=== PATIENT | female | born 2005 | race Caucasian/White ===

== ENCOUNTER 2025-03-02 11:02 | Observation (INO) | payer OTHER ==
[~2025-03-02] VITALS: Ht 167.6 cm; Wt 65.8 kg
[2025-03-02] MEDS ORDERED: MAGNESIUM/ALUMINUM/SIMETHICONE 30 ML UDC PO ONE (11:15)
[2025-03-02] MEDS ORDERED: BELLADONNA ALK/PHENOBARBITAL 5 ML UDC PO STA (11:15)
[2025-03-02] MEDS ORDERED: LIDOCAINE VISC 2% SOLN 15 ML UDC PO ONE (11:15)
[2025-03-02 11:34] LABS: BASOPHILS % 0.8 % (0.0-1.0); EOSINOPHILS % 2.6 % (0.0-6.0); LYMPHOCYTES % 37.6 % (18.0-39.1); MONOCYTES % 17.1 % (4.4-11.3); NEUTROPHILS % 41.5 % (38.7-80.0); RED CELL DISTRIBUTION WIDTH 12.3 % (11.7-14.4)
[2025-03-02] MEDS: DONNATAL/LIDOCAINE/MAALOX 30 ML SUSP PO ONE (11:34)
[2025-03-02 11:46] LABS: EST GLOMERULAR FILTRATION RATE 117.0 ML/MIN (>=60)
[2025-03-02 13:08] LABS: AMPHETAMINES SCREEN,URINE NEGATIVE (NEGATIVE); CANNABINOIDS SCREEN,URINE NEGATIVE (NEGATIVE); COCAINE SCREEN,URINE NEGATIVE (NEGATIVE); METHADONE SCREEN, URINE NEGATIVE (NEGATIVE); OPIATES SCREEN,URINE NEGATIVE (NEGATIVE)
[2025-03-02] MEDS ORDERED: SODIUM CHLORIDE 0.9% 100 ML ONE (13:11)
[2025-03-02] MEDS ORDERED: IOPAMIDOL 370 MG/ML 100 ML INFUS..BTL INJ ONE (13:11)
[2025-03-02] MEDS ORDERED: ONDANSETRON HCL INJ 2MG/ML 2ML 2 MG/ML VIAL IV PRN (15:00)
[2025-03-02 16:02] VITALS: PULSE 78; RESP 16; TEMP 98.4
[2025-03-02 16:25] VITALS: BP 104/63; O2SAT 99
[2025-03-02 16:38] VITALS: PULSE 90; RESP 20; O2SAT 99
[2025-03-02] MEDS ORDERED: birth control (16:38)
[2025-03-02] MEDS: SODIUM CHLORIDE 0.9% 1000ML 1,000 ML IV SCH (16:56)
[2025-03-02 19:13] VITALS: PULSE 87; RESP 16; O2SAT 99
[2025-03-02 20:00] VITALS: BP 100/62; PULSE 77; RESP 18; TEMP 98.2; O2SAT 100
[2025-03-02 21:07] VITALS: BP 100/62; PULSE 77; RESP 18; TEMP 98.2; O2SAT 100
[2025-03-03] VITALS (9 sets, daily range): BP systolic 95–102; BP diastolic 55–68; PULSE 65–90; RESP 16–18; TEMP 97.1–98.6; O2SAT 98–100
[2025-03-03 05:52] LABS: BASOPHILS % 0.7 % (0.0-1.0); EOSINOPHILS % 2.8 % (0.0-6.0); LYMPHOCYTES % 39.2 % (18.0-39.1); MONOCYTES % 10.3 % (4.4-11.3); NEUTROPHILS % 46.6 % (38.7-80.0); RED CELL DISTRIBUTION WIDTH 12.0 % (11.7-14.4)
[2025-03-03] MEDS ORDERED: PEPCID20 MG PO (06:21)
[2025-03-03] MEDS ORDERED: ONDANSETRON ODT4 MG PO (06:23)
[2025-03-03 06:33] LABS: CHOL/HDL RATIO 2.5 (3.0-3.6); EST GLOMERULAR FILTRATION RATE 123.0 ML/MIN (>=60); LDL CHOLESTEROL 46.0 MG/DL (60-130)
[2025-03-03] MEDS: METOPROLOL SUCCINATE 50 MG TAB XL PO ONE (10:30)
[2025-03-04] VITALS: BP 100/62; PULSE 70; RESP 19; TEMP 98.1; O2SAT 100
[2025-03-04 08:21] VITALS: BP 96/62; PULSE 66; RESP 16; TEMP 97.8; O2SAT 99
[2025-03-04 08:22] VITALS: BP 96/62; PULSE 66; RESP 16; TEMP 97.8; O2SAT 99
[2025-03-04 12:23] VITALS: BP 95/63; PULSE 70; RESP 17; TEMP 99.2; O2SAT 100
== END 2025-03-04 13:30 | disposition home or self-care (01) ==
LOC: ER 11:10 → ERHOLD 14:56 → MED/SURG2 17:00
PROVIDERS: ADMIT Internal Medicine; ATTEND Internal Medicine
DX: R07.89 Other chest pain (principal); R11.2 Nausea with vomiting, unspecified; R79.89 Other specified abnormal findings of blood chemistry
CPT/HCPCS: 36415 ×2; 71045; 71275; 74174; 75574; 80053 ×2; 80061; 80307; 82550 ×2; 84439; 84443; 84484 ×2; 84702; 85025 ×2; 93005; 93306; 94799 ×2; 99284; G0378 ×3; J7030 ×2; J7050; Q9967; J2405